=== PATIENT | male | born 1970 | race Caucasian/White ===

== ENCOUNTER 2020-10-07 14:36 | Outpatient (NON) | payer OTHER, SELFPAY | END 2020-10-07 14:37 | PROVIDERS: PCP Internal Medicine; Visit Provider Orthopaedic Surgery | DX: M25.461 Effusion, right knee (principal); M25.462 Effusion, left knee | CPT/HCPCS: 87070; 87075; 87076; 87205 ==

== ENCOUNTER 2020-10-15 10:16 | Outpatient (CLI) | payer OTHER, SELFPAY ==
--- NOTE | 2020-10-15 10:18 | ECG_ITS ---
Measurements Intervals [place] Rate: 82 P: 11 WI: 187 QRS: -25 QRSD: 97 T: 39 QT: 370 QTc: 433 Interpretive Statements SINUS RHYTHM INCOMPLETE RIGHT BUNDLE BRANCH BLOCK BORDERLINE ECG Electronically Signed On 10-15-2020 12:05:35 GENERAL OPERATOR by Je Zuleta D.O.
== END 2020-10-15 10:17 | disposition home or self-care (01) ==
LOC: ANHSURGERY 10:18
PROVIDERS: PCP Internal Medicine; Visit Provider Orthopaedic Surgery
DX: Z01.818 Encounter for other preprocedural examination (principal); F17.200 Nicotine dependence, unspecified, uncomplicated; I45.10 Unspecified right bundle-branch block
CPT/HCPCS: 93005

== ENCOUNTER 2020-10-20 03:58 | Outpatient (CLI) | payer OTHER, SELFPAY ==
[2020-10-20 16:31] LABS: SARS-CoV-2 RNA PCR Negative
== END 2020-10-20 03:59 | disposition home or self-care (01) ==
LOC: ANHCOVIDDT 03:58
PROVIDERS: PCP Internal Medicine; Visit Provider Orthopaedic Surgery
DX: Z01.812 Encounter for preprocedural laboratory examination (principal); Z20.822 Contact with and (suspected) exposure to COVID-19
CPT/HCPCS: C9803; U0003; U0005

== ENCOUNTER 2020-10-23 01:37 | Day surgery (SDC) | payer OTHER, SELFPAY ==
[2020-10-13 16:56] VITALS: BMI 32.2
--- NOTE | 2020-10-22 13:45 | P.PNAN_ITS ---
Anes - Initial Pre Proc Eval Procedure: Operation Date: 10/23/20 07:30 Proposed Procedures p Excision Cyst Left Knee - Leon Hahn MD Date/Time: 10/22/20 13:45 Surgeon: Leon Hahn MD Pre Op Diagnosis: left knee cyst Patient Data Age: 50 Gender: M Height: 1.88 m Weight: 114 kg Allergies Allergy/AdvReac Type Severity Reaction Status Date / Time cephalexin [From Keflex] Allergy Intermediate Hives Verified 10/23/20 06:01 levofloxacin Allergy Intermediate Hives Verified 10/23/20 06:01 Sulfa (Sulfonamide Allergy Intermediate Hives Verified 10/23/20 06:01 Antibiotics) Home Medications Medication Instructions Recorded Confirmed Type cetirizine 10 mg PO HS 10/07/20 10/13/20 History omeprazole 40 mg PO DAILY 10/13/20 10/13/20 History ECG: Date of Service: 10/15/20 Procedure(s): CA 12 lead EKG Accession Number(s): [id number] cc: ~ Measurements Intervals [place] Rate: 82 P: 11 OR: 187 QRS: -25 QRSD: 97 T: 39 QT: 370 QTc: 433 Interpretive Statements SINUS RHYTHM INCOMPLETE RIGHT BUNDLE BRANCH BLOCK BORDERLINE ECG Electronically Signed On 10-15-2020 12:05:35 EDUCATION PROFESSIONAL by Je Zuleta D.O. Dictated By: Je Zuleta DO 10/15/20 1052 Patient hx anesthesia problems: none Family hx anesthesia problems: none PMFSH Past Medical History Medical History (Updated 10/22/20 @ 14:54 by Norman Mejia MD) Chronic GERD Cyst of left knee joint Obesity Tobacco abuse Surgical History Surgical History (Updated 10/07/20 @ 15:10 by Liana Grullon RT(R)) History of left lower extremity amputation 1986 Social History Social History (Updated 10/07/20 @ 15:10 by Liana Grullon RT(R)) Smoking packs per day: 1 Smoking cigarettes per day: 20.0 Years smoked: 30 Smoking pack-years: 30.00 Smoking status: Current every day smoker Tobacco type: cigarettes Alcohol intake: current Drinks per week: 12 Substance use: never Substance use type: does not use Living arrangements: with family Gender identity (if verbalized by the patient): Male Spiritual care concerns: No Anes - Eval Final PreProcedure Day of Procedure 10/22/20 13:45 Patient weight: obese Heart: regular rate and rhythm Lungs: clear to auscultation and normal air movement Airway: Mallampati scale class II Neurological: alert and oriented Last oral intake: >/= 8 hours ASA classification: III Emergent: no Anesthetic plan: proceed Anesthesia type and monitoring: general LMA Informed Consent: The patient's anesthetic plan and its attendant risks and benefits were discussed with the patient/family/POA. Questions were solicited and answers provided to the satisfaction of the patient/family/POA.
[2020-10-23] MEDS: ACETAMINOPHEN 500 MG TABLET 1000 MG PO (06:26)
[2020-10-23] MEDS: LACTATED RINGERS 1,000 ML 30 ML IV CONT (06:35)
[2020-10-23] MEDS: KETOROLAC 15 MG/ML VIAL (*BKC) IV PUSH (06:39)
[2020-10-23 06:49] VITALS: BP 128/72; PULSE 75; RESP 16; TEMP 36.2; O2SAT 97
--- NOTE | 2020-10-23 07:19 | WPDHPUPDATE1 ---
History and Physical Update Update Date/Time: 10/23/20 07:19 History and Physical has been reviewed, including an updated exam of the patient. There are NO changes in the patient's condition. Covid test negative. Risks, benefits, and alternatives have been discussed and questions answered. Patient agrees to proceed with procedure.
[2020-10-23] MEDS: CLINDAMYCIN 900 MG/D5W 50 ML 900 MG/50 ML PIGGYBACK 50 MG IVPB (07:26)
[2020-10-23] MEDS: BUPIVACAINE HCL 0.5% PF 30 ML VIAL INFILTRATE (07:51)
[2020-10-23 08:13] VITALS: BP 106/73; PULSE 75; RESP 14; O2SAT 95
--- NOTE | 2020-10-23 08:23 | PM.PROC ---
Procedure Note - Detailed Date of procedure: 10/23/20 Pre-op diagnosis: left knee cyst Procedure performed: Excision of cyst left knee Description of procedure: Indications: Patient is a 50-year-old status post left below-knee amputation with a cyst on the anterolateral aspect of the amputation stump with drainage. Unrelieved with dressing changes and local wound care. Presents for operative treatment. What was done: Patient identified in the preoperative holding. Informed consent given. Operative extremity marked. Patient received intravenous antibiotics. Patient brought to the operating room where underwent general anesthetic by anesthesia team. Positioned supine on operating room table. Time-out performed confirming the patient, site of the surgery and the plan. Left leg prepped and draped usual sterile surgical fashion using ChloraPrep skin solution. The amputation stump was exsanguinated with an Esmarch bandage and a thigh tourniquet inflated to 250 mmHg. There was a 2 mm sinus at the skin level extending into the cyst. Under elliptical incision was made around the sinus with a 15 blade knife excising both the surrounding skin and the sinus tract down to the subfascial cyst over the lateral aspect of the knee. Cyst wall tissue was sharply excised with the sinus. This was passed off as specimen. The remaining cyst was able to be visualized and sharply divided from the normal tissue which was subfascial. There were no deeper structures involved. The entire cyst was removed. The wound was thoroughly irrigated antibiotic solution. Local anesthetic without% Marcaine plain applied. The wound was then closed in layers with 3 0 Monocryl interrupted suture followed by 4 0 nylon interrupted suture for the skin. Sterile dressing applied. The patient was then woken from anesthesia, extubated and taken to the recovery room in stable condition. All sponge, needle, instrument counts were correct at the end of the case. Implants: None Anesthesia: GLMA and local Surgeon: Leon Hahn MD Instructional Materials Director: 1st cable splicer assistant Estimated blood loss (mL): 2 Tourniquet time (min): 20 Drains: No Packing: No Pathology: yes (Sinus tract and cyst for pathologic specimen) Complications: None Condition: stable Disposition: PACU
[2020-10-23 08:43] VITALS: BP 109/76; PULSE 68; RESP 18
--- NOTE | 2020-10-23 08:44 | SUR.PHASEII ---
PT AWAKE AND ALERT. DENIES PAIN OR NAUSEA, STATES READY TO GO HOME
== END 2020-10-23 09:05 | disposition home or self-care (01) ==
PROVIDERS: PCP Internal Medicine; Visit Provider Orthopaedic Surgery
PROC: (CPT 11402; principal; 2020-10-23 07:30)
DX: L72.0 Epidermal cyst (principal); L90.5 Scar conditions and fibrosis of skin; Z89.512 Acquired absence of left leg below knee; K21.9 Gastro-esophageal reflux disease without esophagitis; F17.210 Nicotine dependence, cigarettes, uncomplicated; E66.9 Obesity, unspecified; Z68.32 Body mass index [BMI] 32.0-32.9, adult
CPT/HCPCS: 11402; 12032; 88304; 88305; A9270; J1885; J2250; J2405; J2704; J3010; J7120

== ENCOUNTER 2020-12-23 14:43 | Outpatient (NON) | payer OTHER, SELFPAY | END 2020-12-23 14:44 | PROVIDERS: PCP Internal Medicine; Visit Provider Orthopaedic Surgery | DX: M25.462 Effusion, left knee (principal) | CPT/HCPCS: 87070; 87075; 87205 ==

== ENCOUNTER 2022-02-18 01:08 | Day surgery (SDC) | payer OTHER, SELFPAY ==
[2022-02-15 14:52] VITALS: BMI 32.1
--- NOTE | 2022-02-15 14:56 | PC.NURSE ---
Report to the Outpatient Waiting Room, entrance under the green pavilion located off [facility], at time _0600_ on date _02-18-22_. OR Time: _07_. - You and your visitor will be asked a series of questions to screen for COVID 19 for your protection. - Only one visitor is allowed at this time. - The patient visitor is requested to leave or wait in car when not with patient. - A mask is required within the hospital. Patients may have clear liquids (water, carbonated beverages, clear teas, apple juice) until 3 hours prior to surgery with a maximum of 20 ounces. - No food from midnight until time of surgery Take the following medications with a SIP of water the morning of surgery: __No medications. Medications to discontinue per physician Date to take last dose Please no make-up, nail jordanian, hairspray, perfume, deodorant, or body powder the day of surgery. No jewelry (including any body piercings) or valuables the day of surgery, leave them at home. Please take a shower or bath the night before, or the morning of, surgery with an antibacterial soap. Wear comfortable, loose fitting clothing. Children are encouraged to wear pajamas. - Jewelry must be removed prior to entering the operating room. Rings and piercings that are not removed may be cut off. - The hospital will not accept responsibility for valuables. - Please leave all valuables, including medications, at home the day of surgery. If you are going home after surgery, a licensed combine driver must drive you home. - NO public transportation without another adult. - We recommend that an adult stay with you for 24 hours following discharge. - We also recommend that you do not drive, make important decision, drink alcoholic beverages, or take any drugs that were not prescribed by your health care provider for at least 24 hours after your discharge time. Follow any additional instructions given to you from your surgeon. If you or anyone in your household have experienced Covid symptoms in the past week, please notify your surgeon or the nurse liaison at the phone number below for possible testing. Telephone instructions given to Patient and asked if any additional questions and then verbalized understanding. Patient advised to call surgeon office or pre surgery nurse liaison [phone] if any additional questions.
[2022-02-18] VITALS (7 sets, daily range): BP systolic 112–141; BP diastolic 71–87; PULSE 67–80; RESP 12–16; TEMP 36.3–36.4; O2SAT 96–99
[2022-02-18] MEDS: LACTATED RINGERS 1,000 ML 30 ML IV CONT (06:39)
[2022-02-18] MEDS: ACETAMINOPHEN 500 MG TABLET 1000 MG PO (06:39)
--- NOTE | 2022-02-18 06:53 | WPDANESEPPF ---
Anes - Initial Pre Proc Eval Procedure: Operation Date: 02/18/22 07:30 Proposed Procedures p Debridement with Excision of Fibular Exostosis Left Leg - Leon Hahn MD Date/Time: 02/18/22 06:53 Surgeon: Leon Hahn MD Pre Op Diagnosis: cutaneous abscess left lower limb Patient Data Age: 51 Gender: M Height: 1.88 m Weight: 113.6 kg Allergies Allergy/AdvReac Type Severity Reaction Status Date / Time cephalexin [From Keflex] Allergy Intermediate Hives Verified 02/18/22 06:24 levofloxacin Allergy Intermediate Hives Verified 02/18/22 06:24 Sulfa (Sulfonamide Allergy Intermediate Hives Verified 02/18/22 06:24 Antibiotics) clavulanic acid AdvReac Intermediate Cramping Verified 02/18/22 06:24 [From Augmentin] of the Muscles Home Medications Medication Instructions Recorded Confirmed Type cetirizine [Zyrtec] 10 mg PO HS 10/07/20 02/18/22 History omeprazole 40 mg PO DAILY 10/13/20 02/18/22 History chlorhexidine gluconate 2 % 1 applic TOPICAL .qd #118 ml 02/10/22 02/10/22 Rx topical liquid mupirocin 2 % topical ointment 1 applic TOPICAL DAILY #22 g 02/10/22 02/18/22 Rx Patient hx anesthesia problems: none Family hx anesthesia problems: none Results Review: All pre-operative results and documents have been reviewed as part of the pre-operative evaluation. [facility] Past Medical History Medical History Abscess of knee, left Chronic GERD Cyst of left knee joint Obesity Tobacco abuse Surgical History Surgical History History of left lower extremity amputation 1986 Social History Social History Smoking packs per day: 1 Smoking cigarettes per day: 20.0 Years smoked: 30 Smoking pack-years: 30.00 Smoking status: Never smoker Tobacco type: cigarettes Alcohol intake: current Drinks per week: 12 Substance use: never Substance use type: does not use Living arrangements: with family Gender identity (if verbalized by the patient): Male Spiritual care concerns: No Anes - Eval Final PreProcedure Day of Procedure 02/18/22 06:53 Patient weight: obese Heart: regular rate and rhythm Lungs: decreased breath sounds Airway: Mallampati scale class III Neurological: alert and oriented Last oral intake: >/= 8 hours ASA classification: III Emergent: no Anesthetic plan: proceed Anesthesia type and monitoring: general LMA and standard monitoring Results Review: All pre-operative results and documents have been reviewed as part of the pre-operative evaluation. Informed Consent: The patient's anesthetic plan and its attendant risks and benefits were discussed with the patient/family/POA. Questions were solicited and answers provided to the satisfaction of the patient/family/POA.
[2022-02-18] MEDS: KETOROLAC 15 MG/ML VIAL (*BKC) IV PUSH (07:05)
--- NOTE | 2022-02-18 07:13 | WPDHPUPDATE1 ---
History and Physical Update Update Date/Time: 02/18/22 07:13 History and Physical has been reviewed, including an updated exam of the patient. There are NO changes in the patient's condition. Risks, benefits, and alternatives have been discussed and questions answered. Patient desires operative treatment. Patient agrees to proceed with procedure.
[2022-02-18] MEDS: CLINDAMYCIN 900 MG/D5W 50 ML 900 MG/50 ML PIGGYBACK 50 MG IVPB (07:26)
--- NOTE | 2022-02-18 08:47 | P.OP_ITS ---
Procedure Note - Detailed Date of Procedure 02/18/22 Pre-op Diagnosis cutaneous abscess left lower limb, fibula exostosis Post-op Diagnosis Same Procedure Performed Excision of exostosis left proximal fibula, debridement of leg abscess. Surgeon Leon Hahn MD Armor Senior Sergeant starch treating assistant Anesthesia General Indications 51-year-old gentleman with left below-knee amputation. Wound and abscess with drainage lateral leg with prosthesis usage. Radiographs show lateral exostosis from the proximal fibula. Patient unable to wear prosthesis and no healing with conservative treatment. Presents for operative treatment. Findings Cutaneous cyst from the lateral aspect of the leg to the subdermal area. Large lateral fibular exostosis. Description of Procedure Patient identified in the preoperative holding. Informed consent given. Operative extremity marked. Patient received intravenous antibiotics. Patient brought to the operating room where underwent general anesthetic by anesthesia team. Positioned lateral decubitus on operating room table. Adequate padding for the down side ensured. Head and neck secured. Time-out performed confirming the patient, site of the surgery and the plan. Left leg prepped draped usual sterile surgical fashion using a ChloraPrep skin solution. The draining sinus area and wound breakdown were marked out on the skin lateral leg. Incision distal and proximal to this was then made with 15 blade knife. The sinus tract and wound area were excised as 1 unit and passed off. Local anesthetic with 0.5% Marcaine plain. No other sinus tract or nonviable tissue was noted. This was approximately 1.5 cm did not proceed below the fascial layer. Wound irrigated closed with 2-0 Vicryl interrupted suture and 3-0 Monocryl suture. The incision was then deepened over the proximal fibula on the lateral aspect. Lateral collateral ligament was sectioned in line with the incision and elevated anteriorly and posteriorly. Care was taken to isolate the common peroneal nerve and protect this posteriorly. Proximal fibula was exposed. A large lateral and posterior exostosis was noted. Osteotome was used to remove the lateral and posterior portion. This was then smoothed with a rongeur. A thorough irrigation with saline. Bone wax used to seal any bleeding areas of the bone. Lateral collateral ligament was then repaired back to the fibula through drill holes with 0 Vicryl interrupted suture. The fascia then repaired with 2-0 Vicryl interrupted suture and subcutaneous tissue repaired with 3-0 Monocryl suture. Glue was placed over the skin. Sterile dressing applied. The patient was then woken from anesthesia, extubated and taken to the recovery room in stable condition. All sponge, needle, instrument counts were correct at the end of the case. Estimated Blood Loss -10.0 Tourniquet Time 0 Drains No Packing No Pathology Yes (Left leg sinus tract) Complications None Condition Stable Disposition PACU
== END 2022-02-18 10:15 | disposition home or self-care (01) ==
PROVIDERS: PCP Internal Medicine; Visit Provider Orthopaedic Surgery
PROC: (CPT 27640; principal; 2022-02-18 07:30)
DX: T87.44 Infection of amputation stump, left lower extremity (principal); M89.8X6 Other specified disorders of bone, lower leg; Y83.5 Amputation of limb(s) as the cause of abnormal reaction of the patient, or of later complication, without mention of misadventure at the time of the procedure; K21.9 Gastro-esophageal reflux disease without esophagitis; F17.210 Nicotine dependence, cigarettes, uncomplicated; E66.9 Obesity, unspecified; Z68.31 Body mass index [BMI] 31.0-31.9, adult
CPT/HCPCS: 27640; 88304; 88311; A9270; J1100; J1885; J2250; J2405; J2704; J3010; J3370; J7120